=== PATIENT | female | born 1990 | race Caucasian/White ===

== ENCOUNTER 2018-02-22 16:23 | Emergency (ER) | END 2018-02-23 05:12 | disposition home or self-care (01) ==

== ENCOUNTER 2018-11-20 17:17 | Emergency (ER) | payer MEDICAID, OTHER ==
[~2018-11-20] VITALS: Ht 165.1 cm; Wt 97.0 kg
[~2018-11-20 17:17] MED LIST: CYCL10TA7 PO; IBUP-1542 PO; VIC PO
[2018-11-20 17:22] VITALS: BP 120/86; PULSE 80; RESP 18; Ht 165.1 cm; Wt 97.0 kg
[2018-11-20] MEDS ORDERED: IBUPROFEN 600 MG TAB PO ONE (19:30)
[2018-11-20] MEDS ORDERED: IBUP-1542 PO (20:53)
[2018-11-20] MEDS ORDERED: CYCL10TA7 PO (20:53)
--- NOTE | 2018-11-20 20:55 | ERD ---
ER Documentation Chief Complaint Chief Complaint RIGHT SHOULDER PAIN RAD BACK,NECK X 2 WEEKS HPI 28-year-old female presents with right shoulder neck pain rating to the right upper extremity for the last 2 weeks patient has a history of injury or inciting events. She denies any weakness, fevers, shortness of breath, chest pain, incontinence, additional symptoms. ROS All systems reviewed and are negative except as per history of present illness. Medications Home Meds Active Scripts Cyclobenzaprine Hcl* (Cyclobenzaprine Hcl*) 10 Mg Tablet, 10 MG PO TID, #15 TAB Prov:GERALDO NGUYEN MD 11/20/18 Ibuprofen* (Motrin*) 600 Mg Tab, 600 MG PO Q6, #20 TAB Prov:GERALDO NGUYEN MD 11/20/18 Cyclobenzaprine Hcl* (Cyclobenzaprine Hcl*) 10 Mg Tablet, 10 MG PO TID, #15 TAB Prov:SUMAYA COOPER [employer]OOKING OFFICER 02/22/18 Ibuprofen* (Motrin*) 600 Mg Tab, 600 MG PO Q6H PRN for PAIN AND OR ELEVATED TEMP, #30 TAB Prov:SUMAYA COOPER BOOKING OFFICER 02/22/18 Ibuprofen* (Motrin*) 600 Mg Tab, 600 MG PO Q6, #30 TAB Prov:AKIL GILLESPIE PA-C 06/05/15 Cyclobenzaprine Hcl* (Cyclobenzaprine Hcl*) 10 Mg Tablet, 10 MG PO QHS, #15 TAB Prov:AKIL GILLESPIE PA-C 06/05/15 Reported Medications Acetaminophen/Hydrocodone (Vicodin) 1 Tab Tab, 1 TAB PO Q4 PRN 06/19/13 Allergies Allergies: Coded Allergies: No Known Allergy (Verified , 06/19/13) PMhx/Soc History of Surgery: Yes (cholecystectomy, c/section x1) Anesthesia Reaction: No Hx Neurological Disorder: No Hx Respiratory Disorders: No Hx Cardiac Disorders: No Hx Psychiatric Problems: No Hx Miscellaneous Medical Probl: No Hx Alcohol Use: No Hx Substance Use: No Hx Tobacco Use: No Smoking Status: Current some day smoker FmHx Family History: No diabetes, No coronary disease, No other Physical Exam Vitals Vital Signs Date Temp Pulse Resp B/P (MAP) Pulse Ox O2 O2 Flow FiO2 Time Delivery Rate 11/20/18 97.8 80 18 120/86 99 17:22 (97) Physical Exam Const: No acute distress Head: Atraumatic Eyes: Normal Conjunctiva ENT: Normal External Ears, Nose and Mouth. Neck: Full range of motion. No meningismus. Tenderness in the right trapezius area. Resp: Clear to auscultation bilaterally Cardio: Regular rate and rhythm, no murmurs Abd: Soft, non tender, non distended. Normal bowel sounds Skin: No petechiae or rashes Back: No midline or flank tenderness Ext: No cyanosis, or edema Neur: Awake and alert. No restricted range of motion or weakness or deficits. No signs of ischemia. Psych: Normal Mood and Affect Results 24 hrs Current Medications Medications Dose Sig/Radames Start Time Status Last (Trade) Ordered Route PRN Stop Time Admin Dose Reason Admin Ibuprofen 600 mg ONCE ONCE 11/20/18 DC 11/20/18 (Motrin) PO 19:30 19:33 11/20/18 19:31 Procedures/MDM X-ray C spine 3V Interpreted by me: Bones: No fracture Joints: No dislocation Foreign body: None impression-no acute findings on C-spine x-ray. Resents with signs and symptoms likely cervical radicular pain without evidence of deficits, signs of bacterial infection, cardiopulmonary etiology. She will be treated with ibuprofen, Flexeril, primary care follow-up and return precautions. The patient was stable with no new complaints during the ER course. Clinically, there is no current evidence to suggest meningitis, sepsis, acute abdomen, pneumonia, stroke, acute coronary syndrome, pulmonary embolism, aortic dissection or any other emergent condition appearing to require further evaluation or hospitalization. Patient counseled regarding my diagnostic impression and care plan. Prior to discharge all questions answered. Pt agrees with treatment plan and understands strict return precautions. Pt is instructed to follow up with primary care provider within 24-48 hours. Precautionary instructions provided including instructions to return to the ER if not improving or for any worsening or changing symptoms or concerns. Departure Diagnosis: Primary Impression: Cervical radiculopathy Condition: Stable Patient Instructions: Radiculopathy, Cervical Additional Instructions: No significant abnormalities on neck x-ray. Likely pinched nerve. See primary doctor for further evaluation treatment. Return for fevers, shortness of breath, new worsening symptoms. GERALDO NGUYEN MD Nov 20, 2018 20:55
== END 2018-11-20 21:04 | disposition home or self-care (01) ==
LOC: FTE 17:17
DX: M54.12 Radiculopathy, cervical region (principal); F17.210 Nicotine dependence, cigarettes, uncomplicated
CPT/HCPCS: 72040; Z7502; Z7610